=== PATIENT | male | born 1955 | race Two or more races ===

== ENCOUNTER → 2019-02-11 | Outpatient (CLI) | payer OTHER ==
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
--- NOTE | 2019-02-11 22:42 | RADRPT ---
PROCEDURE: XR Right hip and pelvis. CLINICAL INDICATION: Right hip pain and pelvic pain. TECHNIQUE: 3 views. Frontal pelvis. Frontal and lateral right hip. COMPARISON: None. FINDINGS: There are plates and screws transfixing the right acetabulum and right superior pubic ramus. Alignmen t is satisfactory. There is no new fracture and there is no dislocation. The left hip is grossly normal. The upper pelvis is not completely included on the image. There is no lytic lesion. IMPRESSION: 1. Satisfactory postoperative appearance of the right hip. 2. Otherwise unremarkable study. RPTAT: QQ .Aldo Galvez MD, Date Time Electronically viewed and signed by .Aldo Galvez MD, on 02/11/2019 22:42 .R/
--- NOTE | 2019-02-11 22:44 | RADRPT ---
PROCEDURE: XR Pelvis. CLINICAL INDICATION: Prior right acetabular surgery. Pelvic pain. TECHNIQUE: 2 oblique Judet views of the pelvis. COMPARISON: No prior studies are available for comparison. FINDINGS: There are 3 plates and multiple screws transfixing the right superior acetabulum with satisfactory al ignment. There is no new fracture and there is no dislocation. There is no lytic or blastic lesion. There are degenerative changes of the lower lumbar spine. The sacroiliac joints, as visualized, are grossly unremarkable. IMPRESSION: 1. Satisfactory postoperative appearance of the right acetabulum. 2. Otherwise unremarkable x-ray pelvis. RPTAT: QQ .Aldo Galvez MD, MD Date Time Electronically viewed and signed by .Aldo Galvez MD, on 02/11/2019 22:44 .R/
== END | disposition home or self-care (01) ==
LOC: HKI 10:40
PROVIDERS: ATTEND Orthopaedic Surgery Adult Reconstructive Orthopaedic Surgery
DX: S32.401D Unspecified fracture of right acetabulum, subsequent encounter for fracture with routine healing (principal); X58.XXXD Exposure to other specified factors, subsequent encounter
CPT/HCPCS: 72170; 73502; G0463